=== PATIENT | female | born 1990 | race Caucasian/White ===

== ENCOUNTER 2020-02-29 14:13 | Emergency (ER) | payer MEDICAID ==
[~2020-02-29] VITALS: Ht 167.6 cm; Wt 77.1 kg
[2020-02-29 14:26] VITALS: BP_SYST 114
--- NOTE | 2020-02-29 14:29 | NUR ---
Patient to ER bed 3 to gown for evaluation. Side rails up. Report given to MALLORIE Juan.
--- NOTE | 2020-02-29 14:40 | NUR ---
Pt came to ER for rash on body neck, chest, legs, and stomach. No pain, skin red, and irritated.
[2020-02-29] MEDS ORDERED: predniSONE 20 MG TABLET PO ONE (14:45)
[2020-02-29] MEDS ORDERED: FAMOTIDINE 20 MG TABLET PO ONE (14:45)
--- NOTE | 2020-02-29 14:45 | NUR ---
ER at bedside examining patient.
[2020-02-29 15:15] VITALS: BP_SYST 114
--- NOTE | 2020-02-29 15:15 | NUR ---
Patient given written and verbal discharge instructions and verbalizes understanding. ER MD discussed with patient the results and treatment provided. Patient in stable condition. ID arm band removed. Rx of Prednisone, Benadryl, and Pepcid given. Patient educated on pain management and to follow up with PMD. Pain Scale 0/10. Opportunity for questions provided and answered. Medication side effect fact sheet provided.
== END 2020-02-29 15:15 | disposition home or self-care (01) ==
LOC: SED 14:13
DX: R21 Rash and other nonspecific skin eruption (principal)
CPT/HCPCS: 99283; J7512

== ENCOUNTER 2021-04-23 12:51 | Emergency (ER) | payer OTHER, MEDICAID ==
[~2021-04-23] VITALS: Ht 167.6 cm; Wt 74.8 kg
[2021-04-23 12:51] VITALS: BP_SYST 114
--- NOTE | 2021-04-23 12:51 | NUR ---
Patient triaged and placed in waiting room. VSS and patient appears in no acute distress at this time. Accompanied by SELF, awaiting available bed, and MD notified of need for MSE.
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
--- NOTE | 2021-04-23 15:00 | NUR ---
LEEANNE Randolph at bedside examining patient.
[2021-04-23] MEDS ORDERED: KETOROLAC TROMETHAMINE 15 MG VIAL IVP ONE (15:15)
[2021-04-23] MEDS ORDERED: ACETAMINOPHEN 500 MG TABLET PO ONE (15:30)
--- NOTE | 2021-04-23 15:31 | NUR ---
patient refused ketorolac IV and asked if she can have a tablet form instead, informed Dr. Ovalles, Ketorolac discontinued, Tylenol 1,000 mg tablet give as per patient preference.
[2021-04-23] MEDS ORDERED: ACETAMINOPHEN 500 MG TABLET ONE (16:33)
--- NOTE | 2021-04-23 16:56 | NUR ---
consent for contrast CT scan signed, IV inserted at Right antecubital, G20. brought by radiographer technologist to radiology department for CT scan.
--- NOTE | 2021-04-23 17:14 | NUR ---
came back from CT scan via wheelchair. comfort provided.
[2021-04-23] MEDS ORDERED: METH-634 PO (18:23)
[2021-04-23 18:29] VITALS: BP_SYST 106
== END 2021-04-23 17:14 | disposition home or self-care (01) ==
LOC: SED 12:51
DX: S09.90XA Unspecified injury of head, initial encounter (principal); S29.9XXA Unspecified injury of thorax, initial encounter; Z79.899 Other long term (current) drug therapy; V43.52XA Car driver injured in collision with other type car in traffic accident, initial encounter; Y93.89 Activity, other specified; Y92.89 Other specified places as the place of occurrence of the external cause; Y99.8 Other external cause status
CPT/HCPCS: 70450; 71045; 72072; 72132; 73630; 74177; 76376; 81025; 99285; Q9967